=== PATIENT | male | born 1960 | race Caucasian/White ===

== ENCOUNTER 2017-01-20 06:15 | Outpatient (CLI) | payer MEDICAID ==
[~2017-01-20] VITALS: Ht 182.9 cm; Wt 109.1 kg
--- NOTE | ~2017-01-20 | HEMODYNAMI ---
PATIENT:HERBERT JIM MEDICAL RECORD: [id number] : 64 LOCATION:D.CAT ADMISSION DATE: 01/20/17 Generatedon:01/20/20178:17 Patient name: HERBERT JIM Patient #: [id number] SSN: : 1960 Date of study: 01/20/2017 Page: Of Hemodynamic Procedure Report Patient Data Patient Demographics Procedure consent was obtained First Name: HERBERT Gender: Male Last Name: DIANDRA : 1960 [facility] Initial: K Age: 56 year(s) Patient #: [id number] Race: Unknown Additional ID: [id number] Contact details [address]: [address] [place] [address] State: [place] City: [place] Zip code: [address] Past Medical History Allergies Allergen Reaction Date Comments Reported Penicillins 01/20/2017 Admission Admission Data Admission Date: 01/20/2017 Admission Time: 6:15 Lab Results Lab Result Date: 01/20/2017 Lab Result Time: 0:00 Biochemistry Name Units Result Min Max Creatinine mg/dl 1.3 --(---*)-- 0.6 1.3 CBC Name Units Result Min Max Hemoglobin g/dl 14.3 --(*---)-- 13.5 17.5 Procedure Procedure Types Cath Procedure Diagnostic Procedure [facility] w/Coronaries Miscellaneous Procedures Moderate Sedation up to 30 minutes Procedure Description Procedure Date Procedure Date: 01/20/2017 Procedure Start Time: 8:05 Procedure End Time: 8:17 Procedure Staff Name Function Mike Davila MD Performing Physician Clarisse Ruiz RT Scrub Ryan Carr RT Scrub Joe Tatum RN Nurse Rina Moreno RT Monitor Luis Shelton RN Tactical Response Group Officer Procedure Data Cath Procedure Fluoroscopy Diagnostic fluoroscopy Total fluoroscopy Time: 3 time: 3 min min Diagnostic fluoroscopy Total fluoroscopy dose: 539 dose: 539 mGy mGy Contrast Material Contrast Material Type Amount (ml) Isovue 300 37 Entry Location Entry Primary Successful Side Size Upsize Upsize Entry Closure Li ccessful Closure Location (Fr) 1 (Fr) 2 (Fr) Remarks Device Remarks Radial Right 6 Fr Mechanical artery Short Compression Estimated blood loss: 5 ml Diagnostic catheters Device Type Used For End Catheter Placement Terumo 5Fr Luc 110cm LV Angiography catheter Terumo 5Fr Luc 110cm Left Coronary catheter Angiography Procedure Complications No complications Procedure Medications Medication Administration Route Dosage Oxygen NC 2 l/min 0.9% NaCl I.V. 100 ml/hr Heparin Flush Bag added to field 2 bags (1000units/500ml NS) Lidocaine 2% added to field 20 Radial Cocktail added to field 1 syringe (Verapomil 2mg/Nitro 400mcg/Heparin 1500units) Versed I.V. 2 mg Fentanyl I.V. 25 mcg Radial Cocktail I.A. 1 syringe (Verapomil 2mg/Nitro 400mcg/Heparin 1500units) Hemodynamics Rest Heart Rate: 79 (bpm) Pressure Samples Time Site Value (mmHg) Purpose Heart Use Rate(bpm) 8:09 LV 131/-5,-2 EDP 115 8:09 AO 101/78(87) Pullback 108 8:09 LV 110/-1,1 Pullback 108 Gradients Valve Time Site 1 Site 2 Mean SEP/DFP Peak To Heart Use (mmHg) (sec/min) Peak Rate (mmHg) (bpm) Aortic 8:09 LV AO 5 10 9 108 110/-1,1 101/78(87) Calculations Valve P-P Mean Valve Index Valve Source Name Gradient Area Flow (cm2) Aortic 9 5 9 5 Snapshots Pre Cath Intra NCS Post Cath Vital Signs Time Heart Resp SPO2 etCO2 [id number] NIBP (mmHg) Rhythm Pain Sedation Rate (ipm) (%) (mmHg) (mmHg) Status Level (bpm) 7:56:30 71 16 100 0 0 165/99(135) NSR 0 (11) 10(A) , No pain 8:01:03 71 17 98 0 0 161/108(138) NSR 0 (11) 10(A) , No pain 8:05:29 94 14 97 0 0 147/106(126) NSR 0 (11) 9(A) , No pain 8:09:57 108 19 92 0 0 137/84(95) NSR 0 (11) 9(A) , No pain 8:14:17 99 16 93 0 0 140/91(115) NSR 0 (11) 10(A) , No pain Medications Time Medication Route Dose Verified Delivered Reason Notes E ffectiveness by by 7:49:30 Oxygen NC 2 l/min Joe Joe Per Rc madsen RN RN 7:51:48 0.9% NaCl I.V. 100 Joe Joe Per ml/hr Rc madsen RN RN 7:52:09 Heparin Flush added 2 bags Joe Joe used for Bag to Lorigan Rc procedure (1000units/500ml field RN RN NS) 7:52:34 Lidocaine 2% added 20ml Joe Joe for local to vial Lorigan Rc anesthetic field RN RN 8:05:06 Radial Cocktail added 1 Joe Joe used for (Verapomil to syringe Lorigan Viriigan procedure 2mg/Nitro field SCOTTY RN 400mcg/Heparin 1500units) 8:05:58 Versed I.V. 2 mg Joe Joe for sedation Rc Tatum RN RN 8:06:04 Radial Cocktail I.A. 1 Joe Mike for (Verapomil syringe Rc Norred MD vasodilation 2mg/Nitro RN 400mcg/Heparin 1500units) 8:06:12 Fentanyl I.V. 25 mcg Joe Joe for sedation Rc Tatum RN printing technician Log Time Note 7:41:47 Luis Shelton RN sent for patient. Start room use. 7:41:48 Time tracking: Regular hours 7:41:52 Plan of Care:Hemodynamics will remain stable., Cardiac rhythm will remain stable., Comfort level will be maintained., Respiratory function will remain adequate., Patient/ family verbilizes understanding of procedure., Procedure tolerated without complication., Recovers from procedure without complications.. 7:44:08 Patient received from Pre/Post Procedure Room to CCL 1 Alert and oriented. Tansferred to table in Supine position. 7:44:09 Warm blankets applied, and wanda hugger turned on for patient comfort. 7:44:09 Correct patient and procedure confirmed by team. 7:44:14 Signed procedure consent form obtained from patient. 7:44:14 ECG and BP/O2 sat monitors applied to patient. 7:44:15 Full Disclosure recording started 7:49:30 Oxygen 2 l/min NC was administered by Joe Lorigan RN; Per physician; 7:51:48 0.9% NaCl 100 ml/hr I.V. was administered by Joe Tatum RN; Per physician; 7:52:09 Heparin Flush Bag (1000units/500ml NS) 2 bags added to field was administered by Joe Tatum RN; used for procedure; 7:52:34 Lidocaine 2% 20ml vial added to field was administered by Joe Tatum RN; for local anesthetic; 7:55:06 Vital chart was started 7:55:10 Rhythm: sinus rhythm 7:55:24 H&P Date Dictated: 01/19/2017 Within 30 days and on chart., H&P Addendum completed by physician on day of procedure. (MUST COMPLETE FOR ALL OUTPATIENTS). 7:55:26 Pre-procedure instructions explained to patient. 7:55:26 Pre-op teaching completed and patient verbalized understanding. 7:55:27 Family in waiting room. 7:55:29 Patient NPO since Midnight. 7:55:44 Patient allergic to Penicillins 7:55:46 Is the patient allergic to Iodine/contrast media? No. 7:55:49 Is patient on blood thinner?Yes 7:55:51 ACC The patient was administered the following blood thiners within the last 24 hours: ACCPlavix 7:56:02 Patient diabetic? No. 7:56:06 Previous problem with sedation/anesthesia? No ? 7:56:07 Snore? Yes 7:56:08 Sleep apnea? No 7:56:09 Deviated septum? No 7:56:10 Opens mouth fully? Yes 7:56:11 Sticks out tongue? Yes 7:56:13 Airway obstruction? No ? 7:56:15 Dentures? No ? 7:56:21 Pre procedure: right dorsailis pedis pulse 2+ Normal; easily identifiable; not easily obliterated 7:56:23 Modified Miko's test Ulnar < 7 seconds 7:56:25 Patient pain scale 0/10 ?. 7:56:30 IV patent on arrival in left hand with 0.9% NaCl at [facility]. 7:57:15 Lab Result : Hemoglobin 14.3 g/dl 7:57:15 Lab Result : Creatinine 1.3 mg/dl 7:57:19 Lab results completed and on chart. 7:57:21 Right Radial & Right Groin area was prepped with chlora-prep and draped in sterile fashion 7:57:22 Alarms reviewed by R. N. 7:57:23 Sharps counted by scrub and verified by R.N. 7:57:24 Use device set Radial Dx 7:57:25 Acist Syringe opened to sterile field. 7:57:26 Medline Cath Pack opened to sterile field. 7:57:26 Bag Decanter opened to sterile field. 7:57:26 Terumo 6Fr Slender Glidesheath opened to sterile field. 7:57:27 St Antonio 260cm J .035 wire opened to sterile field. 7:57:27 Acist Hand Control opened to sterile field. 7:57:27 Acist Manifold opened to sterile field. 7:57:27 Tegaderm 4 x 4 opened to sterile field. 7:57:28 MBrace Wrist Support opened to sterile field. 7:57:34 Cook 4Fr Micropuncture ([id number]) opened to sterile field. 7:57:50 Final Timeout: patient, procedure, and site verified with staff and physician. All members of the team are in agreement. 7:57:53 Right Radial site verified by team. 7:57:55 Physical assessment completed. ASA score P 2 - A patient with mild systemic disease as per Mike Davila MD. 7:57:59 Sedation plan: IV Moderate Sedation Versed, Fentanyl 8:02:00 Zero performed for pressure channel P1 8:02:07 Baseline sample Acquired. 8:04:55 Procedure started. 8:05:04 Local anesthetic to right radial artery with Lidocaine 2% by Mike Davila MD.INITIAL ACCESS ONLY 8:05:06 Radial Cocktail (Verapomil 2mg/Nitro 400mcg/Heparin 1500units) 1 syringe added to field was administered by Joe Tatum RN; used for procedure; 8:05:58 Versed 2 mg I.V. was administered by Joe Tatum RN; for sedation; 8:06:04 Radial Cocktail (Verapomil 2mg/Nitro 400mcg/Heparin 1500units) 1 syringe I.A. was administered by Mike Davila MD; for vasodilation; 8:06:12 Fentanyl 25 mcg I.V. was administered by Joe Tatum RN; for sedation; 8:06:34 A 6 Fr Short sheath was inserted into the Right Radial artery 8:07:21 A Terumo 5Fr Luc 110cm catheter was advanced over the wire and used for LV Angiography. 8::29 LV gram done using AVEYR 8:09:31 LV hemodynamics recorded. 8:09:36 Injector settings: Ml/sec: 12, Volume: 8, 8:10:18 A Terumo 5Fr Luc 110cm catheter was advanced over the wire and used for Left Coronary Angiography. 8:13:23 Catheter removed. 8:13:32 Sheath removed intact; hemostasis achieved with Mechanical Compression to the Right Radial artery. 8:13:34 Procedure ended.(Physican Out) 8:13:53 Fluoroscopy time 03.00 minutes. 8:14:02 Fluoroscopy dose: 539 mGy 8:14:02 Flurop Dose total: 539 8:14:06 Contrast amount:Isovue 300 37ml. 8:14:08 Sharps counted by scrub and verified by R.N. 8:14:10 TR band inflated with 12cc of air. 8:14:11 Insertion/operative site no bleeding no hematoma. 8:14:26 Post right radial artery:stable, clean and dry 8:14:27 Post Procedure Pulses reassessed and unchanged 8:14:33 Post-procedure physical assessment completed. ASA score P 2 - A patient with mild systemic disease as per Mike Davila MD. 8:14:35 Post procedure rhythm: unchanged. 8:14:38 Estimated blood loss: 5 ml 8:14:40 Post procedure instruction explained to patient.Patient verbalizes understanding. 8:14:40 Patient needs reinforcement of post procedure teaching. 8:14:48 Procedure type changed to Cath procedure, Diagnostic procedure, LHC, LHC w/Coronaries, Miscellaneous Procedures, Moderate Sedation up to 30 minutes 8:14:53 Procedure Complication : No complications 8:14:55 See physician's report for complete and final results. 8:15:04 Terumo TR Band Large opened to sterile field. 8:15:38 Procedure and supply charges have been captured, reviewed, submitted and are correct. 8:17:11 Vital chart was stopped 8:17:14 Report given to Pre/Post Procedure Room. 8:17:17 Patient transfered to Pre/Post Procedure Room with Stretcher. 8:17:19 Procedure ended. 8:17:19 Full Disclosure recording stopped 8:17:25 End room use (Document Last) Device Usage Item Name Manufacture Quantity Catalog Hospital Part Current Minim al Lot# / Number Charge Number Stock Stock Serial# Code Acist Syringe Acist 1 15814 153461 361536 [id number] 20 [employer] Medline Cath Cardinal 1 [id number] 440280 19315 001059 5 Pack Health Bag Decanter Microtek 1 2001S 884452 27098 060956 5 Medical Inc. Terumo 6Fr Terumo 1 [id number] 461150 675007 284759 [address] Antonio [address] St Antonio 1 618233 192003 549837 098633 30 J .035 wire Acist Hand Acist 1 66410 510131 917096 538462 5 Control [employer] Inc Acist Acist 1 69269 703297 169737 444970 5 Manifold [employer] Inc Tegaderm 4 x 3M 1 1626W 923321 811585 807735 5 4 MBrace Wrist Advanced 1 140-0250-00 439886 23892 815312 5 Support Vascular Dynamics Cook 4Fr Cook Medical 1 [id number] 076726 168347 771938 5 Micropuncture ([id number]) Terumo 5Fr Terumo 1 32-3417 305439 074021 674841 5 Luc 110cm catheter Terumo TR Terumo 1 [id number] 967853 868713 186064 40 Band Large Signature Audit Howard Stage Time Signature Unsigned Intra-Procedure 01/20/2017 Rina 8:17:38 AM Counts RT(R) Signatures Monitor : Rina Signature : Counts RT Date : Time : [facility] [address] [place] [address]
[~2017-01-20 06:15] MED LIST: CYCLOBENZAPRINE10 MG PO; HYDROCODONE-APA1 TAB PO; INDOCIN25 MG PO; NORVASC5 MG PO; ZYLOPRIM300 MG PO
[2017-01-20] MEDS ORDERED: DESERYL100 MG PO (06:16)
[2017-01-20] MEDS ORDERED: ATIVAN0.5 MG PO (06:16)
[2017-01-20 06:24] VITALS: BP 158/98; Ht 182.9 cm; Wt 109.1 kg
[2017-01-20 06:29] LABS: BASOPHILS 0.4 % (0-2); EOSINOPHILS 2.4 % (0-7); HEMATOCRIT 40.4 % (42.0-54.0); HEMOGLOBIN 14.3 g/dL (13.5-17.5); IMMATURE GRANULOCYTES 0.3 % (0-5); MCH 29.3 pg (26.0-34.0); MCHC 35.4 g/dL (31.0-37.0); MCV 82.8 fL (80.0-100.0); MEAN PLATELET VOLUME 9.2 fL (7.4-10.4); MONOCYTES 7.8 % (2-11); NEUTROPHILS 64.1 % (40-80); PLATELET COUNT 256 10x3/uL (130-400); RBC 4.88 10x6/uL (4.20-6.10); RDW 12.8 % (11.5-14.5)
[2017-01-20 06:52] LABS: ANION GAP 14.9 mmol/L (8-16); CALCIUM 9.8 mg/dL (8.5-10.1); CARBON DIOXIDE 24.3 mmol/L (21.0-32.0); CREATININE - SERUM 1.3 mg/dL (0.6-1.3); POTASSIUM - SERUM 4.2 mmol/L (3.5-5.1)
--- NOTE | 2017-01-20 08:35 | NUR ---
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 PT SLEEPING, AWAKENS EASILY TO VERBAL STIMULI. DENIES ANY C/O CHEST PAIN OR NAUSEA. VSS. NSR WITH RATE OF 81. TR BAND INTACT TO RIGHT WRIST, NO BLEEDING OR HEMATOMA NOTED. FINGERS WARM, CAP REFILL IS BRISK, WRIST IMMOBILIZER IN PLACE. AT BEDSIDE, CALL LIGHT IS IN REACH.
--- NOTE | 2017-01-20 08:45 | NUR ---
0845 PT SLEEPING, RR EVEN AND UNLABORED. TR BAND INTACT WITH NO BLEEDING OR HEMATOMA NOTED. FINGERS WARM, CAP REFILL IS BRISK. NSR, VSS. CALL LIGHT IN REACH.
--- NOTE | 2017-01-20 09:03 | NUR ---
0900 DR HANKS HERE ROUNDING ON PT. PT DENIES ANY C/O. TR BAND STABLE. VSS. CONTINUE TO MONITOR.
--- NOTE | 2017-01-20 09:16 | NUR ---
0915 TR BAND STABLE, RR EVEN AND UNLABORED. VSS. CALL LIGHT IN REACH.
--- NOTE | 2017-01-20 10:00 | NUR ---
0945PT DENIES ANY C/O. NO BLEEDING OR HEMATOMA AT CATH SITE. VSS. CALL LIGHT IN REACH. 1000 TR BAND DEFLATION STARTED, 4 CC OF AIR REMOVED WITH NO BLEEDING OR HEMATOMA NOTED. PT DENIES ANY C/O.
--- NOTE | 2017-01-20 10:25 | NUR ---
1015 PT VOIDED 600 CC CLEAR YELLOW URINE USING URINAL. NO BLEEDING FROM CATH SITE. PT DENIES ANY C/O AT THIS TIME. VSS. AT BEDSIDE.
--- NOTE | 2017-01-20 10:39 | NUR ---
1035 all air removed from TR BAND WITH NO BLEEDING NOTED. PT DENIES ANY C/O AT THIS TIME.
--- NOTE | 2017-01-20 11:31 | NUR ---
1050 PT HAYLEY PO FLUIDS WITH NO NAUSEA. OFFERED SANDWICH AND PT DECLINED. NO BLEEDING OR HEMATOMA AT CATH SITE. TR BAND HAS BEEN REMOVED AND 2X2/TEGADERM APPLIED TO SITE. IV DC'D WITH CATH INTACT. PT DRESSING FOR DC TO HOME. 1110 PT DRESSED FOR DC. CATH SITE STABLE WITH NO BLEEDING OR HEMATOMA. WRIST IMMOBILIZER IN PLACE. PT DENIES ANY C/O CHEST PAIN OR NAUSEA. DC INSTRUCTIONS REVIEWED WITH PT AND WHO VERBALIZE UNDERSTANDING. PT ESCORTED TO PRIVATE AUTO VIA WC BY STAFF WITH DRIVING HIM HOME.
== END 2017-01-20 11:10 | disposition home or self-care (01) ==
LOC: D.CATH 06:15
PROVIDERS: Internal Medicine Cardiovascular Disease
DX: I25.10 Atherosclerotic heart disease of native coronary artery without angina pectoris (principal); R07.9 Chest pain, unspecified; R94.39 Abnormal result of other cardiovascular function study; Z01.812 Encounter for preprocedural laboratory examination

== ENCOUNTER 2019-09-09 09:35 | Observation (INO) | payer MEDICAID ==
[~2019-09-09] VITALS: Ht 182.9 cm; Wt 113.0 kg
--- NOTE | ~2019-09-09 | HEMODYNAMI ---
PATIENT:HERBERT JIM MEDICAL RECORD: [id number] : 64 LOCATION:[facility]212[facility] [id number] ADMISSION DATE: 09/09/19 Generatedon:09/10/201911:07 Patient name: HERBERT JIM Patient #: [id number] : 1960 Date of study: 09/10/2019 Page: Of Hemodynamic Procedure Report Patient Data Patient Demographics Procedure consent was obtained First Name: HERBERT Gender: Male Last Name: DIANDRA : 1960 [facility] Initial: K Age: 58 year(s) Patient #: [id number] Race: SSN: [id number] Additional ID: [id number] Contact details Address: [address] [place] [address] State: [place] City: [place] Zip code: [address] Past Medical History Allergies Allergen Reaction Date Comments Reported Penicillins 01/20/2017 Other allergy 09/10/2019 PCN Admission Admission Data Admission Date: 09/09/2019 Admission Time: 11:36 Arrival Date: 09/10/2019 Arrival Time: 0:00 Admit Source: Other Insurance Payor: Medicaid Room #: [address] #: [id number] Height (in.): 72 BSA: 2.34 (m2) Height (cm.): 182.88 BMI: 33.77 (kg/m2) Weight (lbs.): 249.01 Weight (kg.): 112.95 Lab Results Lab Result Date: 09/10/2019 Lab Result Time: 0:00 Biochemistry Name Units Result Min Max BUN mg/dl 14 --(--*-)-- 7 18 CK-MB ng/ml 1.4 --(-*--)-- 0 3.6 Creatinine mg/dl 1.2 --(---*)-- 0.6 1.3 eGFR ml/min 66 *-(----)-- 90 120 NONAFRICAN Troponin l ng/ml 0.017 --(-*--)-- 0 0.06 CBC Name Units Result Min Max Hematocrit % 40.5 -*(----)-- 42 54 Hemoglobin g/dl 13.7 --(*---)-- 13.5 17.5 Procedure Procedure Types Cath Procedure Diagnostic Procedure C [facility] w/Coronaries Sedation Charges Moderate Sedation up to 15 minutes Procedure Description Procedure Date Procedure Date: 09/10/2019 Procedure Start Time: 10:50 Procedure End Time: 11:06 Procedure Staff Name Function Davis Dasilva MD Performing Physician Khadijah Mattson RT Monitor Elysia Carranza RT Scrub Ander Haddad RN Nurse Procedure Data Cath Procedure Fluoroscopy Diagnostic fluoroscopy Total fluoroscopy Time: 5 time: 5 min min Diagnostic fluoroscopy Total fluoroscopy dose: 659 dose: 659 mGy mGy Contrast Material Contrast Material Type Amount (ml) Isovue 300 68 Entry Location Entry Primary Successful Side Size Upsize Upsize Entry Closure Li ccessful Closure Location (Fr) 1 (Fr) 2 (Fr) Remarks Device Remarks Radial Right 6 Fr Mechanical artery Short Compression Estimated blood loss: 5 ml Diagnostic catheters Device Type Used For End Catheter Placement DIAGNOSTIC Luc 110cm Procedure 5Fr catheter ([id number]) DIAGNOSTIC [place] 110cm 5 Procedure Fr catheter ([id number]) Procedure Complications No complications Procedure Medications Medication Administration Route Dosage Oxygen etCO2 Nasal cannula 2 l/min Lidocaine 2% added to field 20 Heparin Flush Bag added to field 2 bags (1000units/500ml NS) 0.9% NaCl I.V. 100 ml/hr Versed I.V. 2 mg Fentanyl I.V. 100 mcg Versed I.V. 1 mg Fentanyl I.V. 50 mcg Versed I.V. 1 mg Fentanyl I.V. 50 mcg Hemodynamics Rest BSA: 2.34 (m2) HGB: 13.7 (g/dl) O2 Consumption: Estimated: 289.58 (ml/min) O2 Co nsumption indexed: Estimated:123.75 (ml/min/m) Heart Rate: 84 (bpm) Pressure Samples Time Site Value (mmHg) Purpose Heart Use Rate(bpm) 10:56 LV 171/-4,16 Snapshot 96 Gradients Valve Time Site Site Mean SEP/DFP Peak To Heart Use 1 2 (mmHg) (sec/min) Peak Rate (mmHg) (bpm) Aortic 10:56 LV AO 98 Snapshots Pre Cath Intra NCS Post Cath Vital Signs Time Heart Resp SPO2 etCO2 NIBP (mmHg) Rhythm Pain Sedation Rate (ipm) (%) (mmHg) Status Level (bpm) 10:37:07 87 18 94 29.2 149/90(124) NSR 0 (11) 10(A) , No pain 10:41:31 95 13 93 38.1 137/93(120) NSR 0 (11) 10(A) , No pain 10:45:49 95 13 94 15.7 147/97(111) NSR 0 (11) 10(A) , No pain 10:50:12 92 15 93 38.9 143/101(118) NSR 0 (11) 9(A) , No pain 10:54:36 105 14 93 20.9 124/83(102) NSR 0 (11) 9(A) , No pain 10:58:48 103 13 93 22.4 129/97(115) NSR 0 (11) 9(A) , No pain 11:03:02 98 14 94 32.2 143/96(110) NSR 0 (11) 10(A) , No pain Medications Time Medication Route Dose Verified Delivered Reason Notes Eff ectiveness by by 10:35:59 Oxygen etCO2 2 Davis Buffie used for Nasal l/min Brown Haddad RN procedure cannula 10:36:06 Lidocaine 2% added 20ml Davis Davis for local to vial Brown Dasilva MD anesthetic field 10:36:12 Heparin Flush added 2 Davis Davis used for Bag to bags Brown Dasilva MD procedure (1000units/500ml field NS) 10:36:21 0.9% NaCl I.V. 100 Davis Buffie Per ml/hr Brown Haddad RN physician 10:42:05 Fentanyl I.V. 100 Davis Buffie for mcg Brown Haddad RN sedation 10:42:56 Versed I.V. 2 mg Davis Buffie for Brown Haddad RN sedation 10:48:31 Versed I.V. 1 mg Davis Buffie for Brown Haddad RN sedation 10:48:36 Fentanyl I.V. 50 Davis Buffie for mcg Brown Haddad RN sedation 10:52:09 Versed I.V. 1 mg Davis Buffie for Brown Haddad RN sedation 10:52:12 Fentanyl I.V. 50 Davischristiano [place] [facility] Brown Haddad RN sedation Procedure Log Time Note 10:06:02 Informed consent obtained and on chart 10:06:18 Diagnostic Cath Status : Urgent 10:06:51 Procedure Status Urgent Heart Cath (IP). 10:06:55 Time tracking: Regular hours (M-F 7:00 - 5:00) 10:07:00 Plan of Care:Hemodynamics will remain stable., Cardiac rhythm will remain stable., Comfort level will be maintained., Respiratory function will remain adequate., Patient/ family verbilizes understanding of procedure., Procedure tolerated without complication., Recovers from procedure without complications.. 10::55 Ander Haddad RN sent for patient. Start room use. 10:21:50 Arrival Date: 09/10/2019 12:00:00 AM 10:21:51 Admit Source: Other 10:21:55 Patient Height : 72 inches 10:21:59 Patient Weight : 249.01 lbs 10:22:08 Insurance Payor : Medicaid 10:23:03 Lab Result : BUN 14 mg/dl 10:23:03 Lab Result : eGFR NONAFRICAN 66 ml/min 10:23:03 Lab Result : Hemoglobin 13.7 g/dl 10:23:03 Lab Result : Troponin l 0.017 ng/ml 10:23:03 Lab Result : Creatinine 1.2 mg/dl 10:23:03 Lab Result : CK-MB 1.4 ng/ml 10:23:03 Lab Result : Hematocrit 40.5 % 10:24:50 Patient allergic to Other allergyPCN 10:25:15 H&P Date Dictated: 09/09/2019 Within 30 days and on chart.. 10:25:15 Pre-procedure instructions explained to patient. 10:25:16 Pre-op teaching completed and patient verbalized understanding. 10:25:17 Family unavailable. 10:25:19 Patient NPO since Midnight. 10:25:24 Alarms reviewed by R. N. 10:25:24 Sharps counted by scrub and verified by R.N. 10:25:26 Lab results completed and on chart. 10:25:29 Stress Test: no; N/A ? 10:25:43 Patient received from Med II to [facility] 1 Alert and oriented. Tansferred to table in Supine position. 10:25:44 Warm blankets applied, and wanda hugger turned on for patient comfort. 10:25:45 Correct patient and procedure confirmed by team. 10:25:45 ECG and BP/O2 sat monitors applied to patient. 10:26:00 Is the patient allergic to Iodine/contrast media? No. 10:26:02 Was the patient premedicated? N/A 10:26:04 Is patient on blood thinner?No 10:26:08 Patient diabetic? No. 10:26:10 If diabetic: On Metformin? N/A 10:26:11 ----Pre-sedation anethsthesia assessment.---- 10:32:31 Called and update spouse of pt, Izabela. 10:35:49 Vital chart was started 10:35:59 Oxygen 2 l/min etCO2 Nasal cannula was administered by Ander Haddad RN; used for procedure; Verbal order read back and verified. 10:36:06 Lidocaine 2% 20ml vial added to field was administered by Davis Dasilva MD; for local anesthetic; Verbal order read back and verified. 10:36:12 Heparin Flush Bag (1000units/500ml NS) 2 bags added to field was administered by Davis Dasilva MD; used for procedure; Verbal order read back and verified. 10:36:21 0.9% NaCl 100 ml/hr I.V. was administered by Ander Haddad RN; Per physician; Verbal order read back and verified. 10:36:22 Previous problem with sedation/anesthesia? No ? 10:36:23 Snore? Yes 10:36:24 Sleep apnea? No 10:36:26 Deviated septum? No 10:36:28 Opens mouth fully? Yes 10:36:29 Sticks out tongue? Yes 10:36:31 Airway obstruction? No ? 10:36:33 Dentures? No ? 10:36:37 Pre procedure: right dorsailis pedis pulse 2+ Normal; easily identifiable; not easily obliterated 10:36:40 Modified Miko's test Ulnar < 7 seconds 10:36:42 Patient pain scale 0/10 ?. 10:36:48 IV patent on arrival in left forearm with 0.9% NaCl at [facility]. 10:36:56 Right Radial & Right Groin area was prepped with chlora-prep and draped in sterile fashion 10:37:13 Use device set Radial Dx or PCI 10:37:15 ACIST Syringe (08362) opened to sterile field. 10:37:15 Medline Cath Pack ([id number]) opened to sterile field. 10:37:16 Bag Decanter (2002) opened to sterile field. 10:37:16 ACIST Hand Control (80244) opened to sterile field. 10:37:17 ACIST Manifold (25637) opened to sterile field. 10:37:18 MBrace Wrist Support ([id number]) opened to sterile field. 10:37:18 NEEDLE Cook 21G 4cm Radial (K40774) opened to sterile field. 10:37:22 EMERALD Guide Wire (446-243) opened to sterile field. 10:37:22 SHEATH 6FR RAIN (8542559) opened to sterile field. 10:37:35 Baseline sample Acquired. 10:37:36 Full Disclosure recording started 10:37:43 Rhythm: sinus rhythm 10:41:23 Risk of Mortality: 0.1 10:41:26 Risk of blood transfusion: 0.1 10:41:28 Risk of DUANE: 0.4 10:41:30 --------ALL STOP TIME OUT------ 10:41:30 Final Timeout: patient, procedure, and site verified with staff and physician. All members of the team are in agreement. 10:41:32 Right Radial & Right Groin site verified by team. 10:41:36 Fire Safety Assessment: A--An alcohol-based skin anteseptic being used preoperatively., C--Open oxygen or nitrous oxide is being used., D--An ESU, laser, or fiber-optic light is being used. 10:41:40 Physical assessment completed. ASA score P 2 - A patient with mild systemic disease as per Davis Dasilva MD. 10:41:44 2) 60-89 Mildly reduced kidney function, and other findings (as for stage 1) point to kidney disease. 10:41:47 Maximum allowable contrast dose (3.7 X eGFR X 0.75)183 ml. 10:41:51 Sedation plan: IV Moderate Sedation Medication:Versed, Fentanyl 10:42:05 Fentanyl 100 mcg I.V. was administered by Ander Haddad RN; for sedation; Verbal order read back and verified. 10:42:56 Mikal 2 mg I.V. was administered by Ander Haddad RN; for sedation; Verbal order read back and verified. 10:48:31 Versed 1 mg I.V. was administered by Ander Haddad RN; for sedation; Verbal order read back and verified. 10:48:36 Fentanyl 50 mcg I.V. was administered by Ander Haddad RN; for sedation; Verbal order read back and verified. 10:50:33 Procedure started. 10:50:49 Local anesthetic to right radial artery with Lidocaine 2% by Davis Dasilva MD.INITIAL ACCESS ONLY 10:51:06 A 6 Fr Short sheath was inserted into the Right Radial artery 10:52:09 Versed 1 mg I.V. was administered by Ander Haddad RN; for sedation; Verbal order read back and verified. 10:52:12 Fentanyl 50 mcg I.V. was administered by Ander Haddad RN; for sedation; Verbal order read back and verified. 10:53:26 A DIAGNOSTIC Luc 110cm 5Fr catheter ([id number]) was advanced over the wire and used for Procedure. 10:53:38 LV gram done using AVERY 10:56:15 Injector settings: Ml/sec: 5, Volume: 15, 10:56:17 LV hemodynamics recorded. 10:56:23 EF : 40 % 10:58:50 UNABLE TO FULLY ENGAGE CHANGING CATHETERS. 10:59:55 Catheter exchanged over wire. 10:59:59 A DIAGNOSTIC [place] 110cm 5 Fr catheter ([id number]) was advanced over the wire and used for Procedure. 11:00:29 LCA angiography performed. 11:00:37 Injector settings: Ml/sec: 3, Volume: 6, 11:00:49 Injector settings: Ml/sec: 4, Volume: 8, 11:01:51 RCA angiography performed. 11:01:57 Injector settings: Ml/sec: 3, Volume: 6, 11:01:59 Catheter removed. 11:03:06 ZEPHYR LARGE TR BAND (195377) opened to sterile field. 11:03:19 Sheath removed intact; hemostasis achieved with Mechanical Compression to the Right Radial artery. 11:03:22 Procedure ended.(Physican Out) 11:03:44 Fluoroscopy time 05.00 minutes. 11:03:49 Fluoroscopy dose: 659 mGy 11:03:49 Flurop Dose total: 659 11:03:59 Dose Area Product 99132 mGy/cm. 11:04:26 Contrast amount:Isovue 300 68ml. 11:04:31 Maximum allowable dose exceeded? No. 11:04:32 Sharps counted by scrub and verified by R.N. 11:04:35 [place] band inflated with 10cc of air. 11:04:40 Post Procedure Pulses reassessed and unchanged 11:04:43 Post procedure: right dorsailis pedis pulse 2+ Normal; easily identifiable; not easily obliterated. 11:04:50 Post-procedure physical assessment completed. ASA score P 2 - A patient with mild systemic disease as per Davis Dasilva MD. 11:04:57 Post procedure rhythm: unchanged. 11:04:59 Estimated blood loss: 5 ml 11:05:01 Post procedure instruction explained to patient.Patient verbalizes understanding. 11:05:02 Patient needs reinforcement of post procedure teaching. 11:05:17 Procedure type changed to Cath procedure, Diagnostic procedure, LHC, [facility] w/Coronaries, Sedation Charges, Moderate Sedation up to 15 minutes 11:05:37 Procedure and supply charges have been captured, reviewed, submitted and are correct. 11:05:41 Procedure Complication : No complications 11:06:20 Vital chart was stopped 11:06:42 [facility] Findings: mild to moderate CAD (<70%) 11:06:44 Operative report dictated upon procedure completion. 11:06:44 See physician's report for complete and final results. 11:06:48 Report given to [facility]. 11:06:52 Patient transfered to [facility] II with Bed. 11:06:54 Procedure ended. 11:06:54 Full Disclosure recording stopped 11:07:02 End room use (Document Last) 11:07:15 End room use (Document Last) 11:07:30 End room use (Document Last) Device Usage Item Name Manufacture Quantity Catalog Hospital Part Current Minima l Lot# / Number Charge Number Stock Stock Serial# Code ACIST Acist 1 57889 597676 350619 367163 20 Syringe Dolphin (29089) Recovr Inc Medline Medline 1 [id number] 902600 45799 947189 5 Cath Pack ([id number]) Bag Microtek 1 256053 36624 297859 5 Decanter Medical Inc. () ACIST Hand Acist 1 78365 758157 077405 840709 5 Control Medical (80174) Systems Inc ACIST Acist 1 85192 015014 964205 021482 5 Manifold Medical (30242) Systems Inc MBrace Advanced 1 140-0250-00 218670 03683 780147 5 Wrist Vascular Support Dynamics ([id number]) NEEDLE Cook Cook Medical 1 S20084 430787 979507 070329 5 21G 4cm Radial (L47067) EMERALD Cardinal 1 502-455 293421 039381 947185 5 Guide Wire Health (502-455) SHEATH 6FR Cardinal 1 3795691 376347 2709759 830985 5 [facility] Health (9367321) DIAGNOSTIC Terumo 1 40-5023 385866 584931 405606 5 Luc 110cm 5Fr catheter (820806) DIAGNOSTIC Terumo 1 40-5013 434319 018930 190606 5 [place] 110cm 5 Fr catheter (492965) ZEPHYR Cardinal 1 882606 418295 9447519 101030 5 LARGE TR Health BAND (830037) Signature Audit [place] Stage Time Signature Unsigned Intra-Procedure 09/10/2019 Khadijah Mattson 11:07:15 AM RT(R) Intra-Procedure 09/10/2019 Ander Haddad RN 11:07:30 AM Intra-Procedure 09/10/2019 Davis Dasilva MD 11:07:49 AM [facility] [address] [place] [address]
[~2019-09-09 09:35] MED LIST changes: +ATIVAN0.5 MG PO; +DESERYL100 MG PO
[2019-09-09 10:10] LABS: EOSINOPHILS 5.1 % (0-7); HEMATOCRIT 39.4 % (42.0-54.0); HEMOGLOBIN 13.4 g/dL (13.5-17.5); IMMATURE GRANULOCYTES 0.2 % (0-5); LYMPHOCYTES 34.5 % (15-50); MCH 29.1 pg (26.0-34.0); MCV 85.7 fL (80.0-100.0); MEAN PLATELET VOLUME 8.9 fL (7.4-10.4); MONOCYTES 8.9 % (2-11); NEUTROPHILS 50.3 % (40-80); PLATELET COUNT 223 10x3/uL (130-400); RDW 12.7 % (11.5-14.5); WBC 4.9 10x3/uL (4.8-10.8)
[2019-09-09 10:20] LABS: APTT 28.9 SECONDS (22.8-39.4); INR 0.95 (0.85-1.17); PROTIME 12.7 SECONDS (11.6-15.0)
[2019-09-09 10:25] LABS: CALC OSMOLALITY 280 mosm/kg (275-300); CARBON DIOXIDE 26.1 mmol/L (21.0-32.0); CHLORIDE - SERUM 103 mmol/L (98-107); CREATININE - SERUM 1.2 mg/dL (0.6-1.3); GLUCOSE 124 mg/dL (74-106); SODIUM 139 mmol/L (136-145); UREA NITROGEN 18 mg/dL (7-18); eGFR NON AFRICAN AMERICAN 66 mL/min (90-120)
[2019-09-09 10:40] LABS: ALBUMIN 3.6 g/dL (3.4-5.0); ALKALINE PHOSPHATASE 103 U/L (30-120); ALT (SGPT) 18 U/L (10-68); BILIRUBIN - TOTAL 0.27 mg/dL (0.2-1.3); CKMB 2.3 U/L (0.0-3.6); CREATINE KINASE 136 UL (21-232); MAGNESIUM - SERUM 1.8 mg/dL (1.8-2.4); PROTEIN - SERUM 7.2 g/dL (6.4-8.2); TROPONIN-I < 0.017 ng/mL (0.000-0.060)
[2019-09-09 13:22] LABS: CKMB 2.2 U/L (0.0-3.6); CREATINE KINASE 124 UL (21-232); TROPONIN-I < 0.017 ng/mL (0.000-0.060)
[2019-09-09 14:31] VITALS: BP 142/86
--- NOTE | 2019-09-09 14:58 | NUR ---
PT ARRIVED ON FLOOR VIA WC. SELF TRANSFER TO BED. ALERT AND ORIENTED. PLACED TELEMETRY ON PT AND PT IS [id number] SINUS RHYTHM. MED REC AND HX COMPLETED. RN TO DO ADMISSION ASSESSMENT.
[2019-09-09] MEDS ORDERED: TRAZODONE HCL150 MG PO (15:00)
[2019-09-09] MEDS ORDERED: FISH OIL 1,0001 CA1 PO (15:04)
[2019-09-09] MEDS ORDERED: MULTI-DAY VITAM1 TAB PO (15:06)
[2019-09-09 17:19] VITALS: BP 162/94
[2019-09-09 18:50] LABS: BASOPHILS 0.5 % (0-2); EOSINOPHILS 3.7 % (0-7); HEMATOCRIT 40.5 % (42.0-54.0); IMMATURE GRANULOCYTES 0.2 % (0-5); LYMPHOCYTES 28.3 % (15-50); MCH 29.7 pg (26.0-34.0); MCHC 34.6 g/dL (31.0-37.0); MCV 85.8 fL (80.0-100.0); MEAN PLATELET VOLUME 8.7 fL (7.4-10.4); MONOCYTES 4.7 % (2-11); NEUTROPHILS 62.6 % (40-80); PLATELET COUNT 214 10x3/uL (130-400); RBC 4.72 10x6/uL (4.20-6.10)
[2019-09-09 19:04] VITALS: Ht 182.9 cm; Wt 113.0 kg
--- NOTE | 2019-09-09 19:15 | NUR ---
RECEIVED REPORT, WILL ASSUME CARE OF PT, EXPLAIN WILL BE NPO AFTER MIDNIGHT FOR CATH IN AM, DENIES ANY NEEDS, BED IS LOW, SRX2, CALL LIGHT IN REACH, WILL CONTINUE PLAN OF CARE
[2019-09-09 19:32] LABS: CALC OSMOLALITY 290 mosm/kg (275-300); CARBON DIOXIDE 28.9 mmol/L (21.0-32.0); CHLORIDE - SERUM 103 mmol/L (98-107); CHOL - HDL RATIO 5.6 ratio (2.3-4.9); CHOLESTEROL, TOTAL 201 mg/dL (0-200); CKMB 1.7 U/L (0.0-3.6); CREATINE KINASE 109 UL (21-232); CREATININE - SERUM 1.2 mg/dL (0.6-1.3); GLUCOSE 160 mg/dL (74-106); HDL CHOLESTEROL 36 mg/dL (32-96); LDL CHOLESTEROL 104 mg/dL (0-100); LDL-HDL RATIO 2.9 ratio (1.5-3.5); POTASSIUM - SERUM 3.9 mmol/L (3.5-5.1); SODIUM 144 mmol/L (136-145); TRIGLYCERIDE 306 mg/dL (30-200); UREA NITROGEN 14 mg/dL (7-18); eGFR NON AFRICAN AMERICAN 66 mL/min (90-120)
[2019-09-09 19:33] LABS: ALT (SGPT) 26 U/L (10-68); TROPONIN-I < 0.017 ng/mL (0.000-0.060)
[2019-09-09 20:00] VITALS: BP 137/81
[2019-09-10 01:12] VITALS: BP 156/78
[2019-09-10 01:58] LABS: CKMB 1.4 U/L (0.0-3.6); CREATINE KINASE 97 UL (21-232); TROPONIN-I < 0.017 ng/mL (0.000-0.060)
--- NOTE | 2019-09-10 03:59 | NUR ---
I have reviewed this patient and I concur with the Shift Assessment completed by the Licensed Practical Nurse today this shift.
[2019-09-10 04:05] VITALS: BP 129/78
[2019-09-10 05:50] LABS: BASOPHILS 0.6 % (0-2); EOSINOPHILS 4.7 % (0-7); HEMATOCRIT 40.5 % (42.0-54.0); HEMOGLOBIN 13.7 g/dL (13.5-17.5); IMMATURE GRANULOCYTES 0.1 % (0-5); LYMPHOCYTES 30.2 % (15-50); MCH 29.4 pg (26.0-34.0); MCHC 33.8 g/dL (31.0-37.0); MCV 86.9 fL (80.0-100.0); MEAN PLATELET VOLUME 9.1 fL (7.4-10.4); MONOCYTES 7.5 % (2-11); NEUTROPHILS 56.9 % (40-80); PLATELET COUNT 231 10x3/uL (130-400); RBC 4.66 10x6/uL (4.20-6.10); RDW 13.4 % (11.5-14.5); WBC 7.1 10x3/uL (4.8-10.8)
[2019-09-10 06:17] LABS: ALBUMIN 3.7 g/dL (3.4-5.0); BILIRUBIN - TOTAL 0.36 mg/dL (0.2-1.3); CALCIUM 9.2 mg/dL (8.5-10.1); CARBON DIOXIDE 29.8 mmol/L (21.0-32.0); CREATININE - SERUM 1.2 mg/dL (0.6-1.3); PROTEIN - SERUM 6.8 g/dL (6.4-8.2)
[2019-09-10 06:36] LABS: ANION GAP 12.7 mmol/L (8-16); POTASSIUM - SERUM 4.5 mmol/L (3.5-5.1)
--- NOTE | 2019-09-10 07:20 | NUR ---
RECIEVE REPORT. RESTING IN BED WITH EYES CLOSED. NO SIGNS OF DISTRESS. CONSENTS FOR RN INTEGRITY SIGNED ON CHART. CONTINUE PLAN OF CARE AND SAFETY PRECAUTIONS.
[2019-09-10 07:53] VITALS: BP 127/81
--- NOTE | 2019-09-10 11:29 | NUR ---
ARRIVE BACK TO ROOM VIA BED FROM OXYGEN THERAPY TEACHER. SEDATED. AROUSES TO STIMULI. BP-128/82, HR=94 SINUS RYTHM, 02-93% RA. RT WRIST ZYTHROBAND ON. FREE FROM BLEEDING. FREE FROM HEMATOMA. CONTINUE PLAN OF CARE AND SAFETY PRECAUTIONS.
[2019-09-10] MEDS ORDERED: LIPITOR40 MG PO (11:35)
[2019-09-10] MEDS ORDERED: BAYER CHEWABLE81 MG PO (11:35)
--- NOTE | 2019-09-10 16:17 | NUR ---
ALERT AND ORIENTED X4. SITTING UP IN BED. ZYTHROBAND DEFLATED. RT RADIAL REMAINS FREE FROM BLEEDING. FREE FROM HEMATOMA. DISCHARGE INSTRUCTIONS GIVEN VERBALLY AND WRITTEN. DISCHARGE PAPERS SIGNED ON CHART. DC LT FA IV TIP INTACT. ESCORT TO RIDE VIA AMBULATORY PER PATIENT REQUEST. REMAINS FREE FROM INJURY.
--- NOTE | 2019-09-12 07:31 | MORECARE ---
CASE MANAGEMENT DISCHARGE SUMMARY PATIENT: HERBERT JIM UNIT: [id number] ADM DATE: 09/09/19 AGE: 58 : 64 SEX: M ROOM/BED: D.2122 AUTHOR: SARINA ANTHONY PHYSICIAN: REFERRING PHYSICIAN: LEVY SUTHERLAND MD DATE OF SERVICE: 09/12/19 Discharge Plan Patient Name: HERBERT JIM [facility] [facility] 1960 Planned Disposition: Anticipated Discharge Date: Discharge Date: 09/10/2019 Expected LOS: 0 Initial Reviewer: [email or web address] Initial Review Date: 09/12/2019 Generated: 09/12/19 8:31 am Patient Name: HERBERT JIM Page 52791 at 0731 All edits/amendments must be made on the electronic document DICTATION DATE: 09/12/19730 PLATE TAKE OUT WORKER: JEF 09/12/19730 RPT#: [id number] DC DATE:09/10/19 STATUS: DIS IN [facility] [address] [place] [address] END OF REPORT
== END 2019-09-10 16:19 | disposition home or self-care (01) ==
LOC: D.ER 09:35 → D.M2 11:36 → OBSVTIME 12:03 → D.M2 09-10 16:19
PROVIDERS: Family Medicine; Internal Medicine Cardiovascular Disease; ADMIT Family Medicine; ATTEND Family Medicine
DX: I25.110 Atherosclerotic heart disease of native coronary artery with unstable angina pectoris (principal); E66.9 Obesity, unspecified; Z68.35 Body mass index [BMI] 35.0-35.9, adult; I10 Essential (primary) hypertension; M10.9 Gout, unspecified